=== PATIENT | male | born 1960 | race Caucasian/White ===

== ENCOUNTER → 2018-10-16 | Emergency (ER) | payer OTHER ==
[~2018-10-16] VITALS: Ht 177.8 cm; Wt 74.8 kg
[~2018-10-16] MED LIST: ALPR2TAB2 PO; BUPR1FIL SL
[2018-10-16 06:42] VITALS: BP 141/72
== END | disposition home or self-care (01) ==
LOC: ER 06:37
DX: B00.1 Herpesviral vesicular dermatitis (principal); F41.9 Anxiety disorder, unspecified; F17.200 Nicotine dependence, unspecified, uncomplicated; Z60.2 Problems related to living alone; Z79.899 Other long term (current) drug therapy